=== PATIENT | male | born 1950 | race Caucasian/White ===

== ENCOUNTER → 2022-02-03 | Outpatient (CLI) | payer OTHER ==
--- NOTE | 2022-02-03 11:33 | MR ---
EXAMINATION TYPE: MR brain and iac wo/w con DATE OF EXAM: 02/03/2022 COMPARISON: None HISTORY: Loss of hearing left side. TECHNIQUE: Multiplanar, multisequence images of the brain and brainstem and IAC is performed without and with IV contrast, utilizing 11 mL intravenous Gadavist . FINDINGS: Diffusion weighted images demonstrate no evidence of a recent infarct or other diffusion ab normality. There is no extra-axial fluid collection. Patchy areas of high T2/FLAIR signal abnormalit y demonstrated within the periventricular and subcortical white matter. The ventricular system and c isternal spaces are normal in size and appearance. The brain volume is age appropriate. The internal auditory canal sequences demonstrate no significant irregularity. The 7th cranial nerves , if renal nerves, and cerebellar pontine angles appear unremarkable and symmetric. No abnormal contr ast enhancement. Midline structures demonstrate normal morphology. The craniocervical junction appears within normal limits. Post contrast images demonstrate no abnormal enhancement. The dural venous sinuses appear pa tent. The visualized sinuses are clear and the globes are intact. IMPRESSION: 1. No evidence of intracranial mass nor acute/subacute CVA. 2. No evidence internal auditory canal abnormality. 3. 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
== END | disposition home or self-care (01) ==
LOC: RADMRIMAIN 10:17
PROVIDERS: ATTEND Nurse Practitioner Adult Health
DX: H90.5 Unspecified sensorineural hearing loss (principal); R90.82 White matter disease, unspecified
CPT/HCPCS: 70553; A9585